=== PATIENT | female | born 1990 | race Caucasian/White ===

== ENCOUNTER 2024-04-16 06:59 | Inpatient (IN) | payer MEDICAID ==
[~2024-04-16 06:59] MED LIST: Bupivacaine 0.25% 10 ML SDV ONE
[2024-04-16] MEDS ORDERED: Ondansetron 4 MG/2 ML SDV IVPUSH PRN (07:13)
[2024-04-16] MEDS ORDERED: Calcium Carbonate 500 MG Tab.Chew PO PRN (07:13)
[2024-04-16] MEDS ORDERED: Nalbuphine 10 MG/1 ML Vial IVPUSH PRN (07:13)
[2024-04-16] MEDS ORDERED: Acetaminophen 325 MG Tab PO PRN (07:13)
[2024-04-16] MEDS ORDERED: Lidocaine 1% 50 ML MDV INJECT PRN (07:13)
[2024-04-16] MEDS ORDERED: Oxytocin/0.9 % Sodium Chloride 30 UNIT/500 ML BAG IV SCH (07:15)
[2024-04-16 07:47] LABS: BASOPHILS ABSOLUTE AUTO 0.1 K/mm3 (0.0-0.2); BASOPHILS PERCENT AUTO 0.5 % (0.0-1.0); EOSINOPHILS ABSOLUTE AUTO 0.1 K/mm3 (0.0-0.4); EOSINOPHILS PERCENT AUTO 0.8 % (0.0-6.0); HEMATOCRIT 34.2 % (37.0-47.0); HEMOGLOBIN 11.8 gm/dl (12.0-16.0); IMMATURE GRAN ABSOLUTE AUTO 0.04 K/mm3 (0.00-0.05); IMMATURE GRAN PERCENT AUTO 0.4 % (0.0-0.4); LYMPHOCYTES ABSOLUTE AUTO 2.7 K/mm3 (1.0-4.8); LYMPHOCYTES PERCENT AUTO 25.5 % (24.0-44.0); MEAN CORPUSCULAR HEMOGLOBIN 29.1 pg (28.0-32.0); MEAN CORPUSCULAR HGB CONC 34.5 g/dl (32.0-36.0); MEAN CORPUSCULAR VOLUME 84.2 fl (83.0-99.0); MONOCYTES ABSOLUTE AUTO 0.7 K/mm3 (0.0-0.8); MONOCYTES PERCENT AUTO 6.6 % (0.0-8.0); NEUTROPHILS ABSOLUTE AUTO 6.9 K/mm3 (1.8-7.7); NEUTROPHILS PERCENT AUTO 66.2 % (41.0-71.0); PLATELET COUNT,PLT 286 K/mm3 (150-400); RED BLOOD CELL COUNT 4.06 M/mm3 (4.10-5.30); WHITE BLOOD CELL COUNT,WBC 10.47 K/mm3 (3.9-11.3)
[2024-04-16] MEDS: Lactated Ringers 1,000 ML IV SCH (09:12)
[2024-04-16] MEDS: Oxytocin/0.9 % Sodium Chloride 30 UNIT/500 ML BAG IV SCH (09:24)
[2024-04-16] MEDS ORDERED: ePHEDrine 50 MG/ML SDV IVPUSH PRN (11:20)
[2024-04-16] MEDS ORDERED: diphenhydrAMINE 50 MG/ML SDV IVPUSH PRN (11:20)
[2024-04-16 12:16] LABS: CREATININE 0.6 mg/dL (0.55-1.02); EST CRCL DRUG DOSING (CG) 127.18 mL/min; URIC ACID 4.2 mg/dL (2.6-6.0)
[2024-04-16] MEDS: fentaNYL 100 MCG/2 ML SDV EPIDUR PRN (13:09)
[2024-04-16] MEDS: Bupivacaine/fentaNYL/NS 100 ML Bag EPIDUR PRN (13:09)
[2024-04-16 15:41] LABS: CREATININE,URINE RAND 81.6 mg/dL (30.0-125.0); PROTEIN CREATININE RATIO,URINE 248.8 mg/g (0-149); PROTEIN,URINE RANDOM 20.3 mg/dL (0.0-11.8)
[2024-04-16] MEDS: Ibuprofen 600 MG Tab PO SCH ×2 (19:51→20:54)
[2024-04-16] MEDS: Benzocaine/Menthol 20%-0.5% Spray 78 GM Cannister TOP PRN (19:59)
[2024-04-16] MEDS: Witch Hazel Medicated Pads 40/Jar TOP PRN (19:59)
== END 2024-04-17 18:58 | disposition home or self-care (01) | DRG 807 ==
LOC: JD.OB 06:59 → OBSVTOIN 14:38 → JD.OB 14:39
PROVIDERS: ADMIT Obstetrics & Gynecology; ATTEND Obstetrics & Gynecology
PROC: 10E0XZZ Delivery of Products of Conception, External Approach (ICD-10-PCS; principal; 2024-04-16)
PROC: 0KQM0ZZ Repair Perineum Muscle, Open Approach (ICD-10-PCS; 2024-04-16)
PROC: 10907ZC Drainage of Amniotic Fluid, Therapeutic from Products of Conception, Via Natural or Artificial Opening (ICD-10-PCS; 2024-04-16)
PROC: 3E0R3BZ Introduction of Anesthetic Agent into Spinal Canal, Percutaneous Approach (ICD-10-PCS; 2024-04-16)
PROC: 00HU33Z Insertion of Infusion Device into Spinal Canal, Percutaneous Approach (ICD-10-PCS; 2024-04-16)
DX: O99.344 Other mental disorders complicating childbirth (principal); Z37.0 Single live birth; F31.9 Bipolar disorder, unspecified; Z3A.39 39 weeks gestation of pregnancy; O99.214 Obesity complicating childbirth; O70.1 Second degree perineal laceration during delivery
CPT/HCPCS: 36415; 59025; 59409; 82565; 82570; 83615; 84156; 84450; 84460; 84520; 84550; 85025; 86592; 86850; 86900; 86901; A9270-GY; J0665; J3010; J3490; J7120; J7999